=== PATIENT | female | born 1960 | race Caucasian/White ===

== ENCOUNTER 2016-07-24 21:00 | Emergency (ER) | payer OTHER ==
[~2016-07-24 21:00] MED LIST: CHILDREN'S ASPI81 MG PO; COZAAR100 MG PO; FLONASE 0.05% D16 GM NS; LIPITOR20 MG PO; ZYRTEC10 M3 PO
--- NOTE | 2016-07-25 19:35 | ER ---
ADMIT: 07/24/2016 RM/LOC: [facility] MR#: [id number] [address] [id number] DINH LOMBARDO MARSHA Rob Luis [address] [place] [address] Emergency Room Report SEX: F AGE: 55 : 1960 DATE: 07/24/2016 ADDENDUM: Please see my T-sheet for complete review of systems, past medical history, and physical exam. CHIEF COMPLAINT: Sore throat. HISTORY OF PRESENT ILLNESS: A 55-year-old female, who presents with 5 days' duration of upper respiratory symptoms, two days of worsening sore throat. Admits to fever, chills, severe sore throat, runny nose, congestion, cough, swollen glands, muscle aches, headaches. States she has been using some tetracycline. I am not sure exactly where she has obtained this, but she has taken several doses of this antibiotic. PAST MEDICAL HISTORY: Diabetes and hypertension. COURSE IN THE EMERGENCY ROOM: GENERAL: The patient was seen and examined, afebrile, nontoxic. No acute distress. HEENT: Normocephalic, atraumatic. No cervical lymphadenopathy. Mouth, pharynx is nonerythematous. No tonsillar exudates. No airway problems. Ears nonerythematous. She does have some rhinorrhea and mucosal edema on the right greater than left. RESPIRATORY: No respiratory distress. Breath sounds equal bilaterally. HEART: Regular rate and rhythm. ABDOMEN: Soft and nontender. SKIN: No rash. Rapid strep screen negative for strep. Throat culture pending at this time. She was given 300 mg of ibuprofen prior to discharge. IMPRESSION: 1. Acute pharyngitis. 2. Upper respiratory infection. DISPOSITION: The patient was discharged to continue Tylenol and ibuprofen as needed for pain. I did encourage her to stop taking the tetracycline at this time as it is not prescribed by physician. Return with worsening signs or symptoms. Increase fluids. Follow up with primary as needed. Questions sought and answered to the best of my ability and to the patient's satisfaction. Discharged in stable condition. ANGIE Regalado / Vishal Tuckre MD / aracelis JOB #: [id number] CC: Vishal Tucker MD, Attending Physician Carlos Eduardo Diaz MD, Family Physician
== END 2016-07-24 22:26 | disposition home or self-care (01) ==
LOC: ER 21:00
DX: J02.9 Acute pharyngitis, unspecified (principal); E11.9 Type 2 diabetes mellitus without complications; I10 Essential (primary) hypertension

== ENCOUNTER → 2016-11-03 | Outpatient (CLI) | payer OTHER | END | disposition home or self-care (01) | DX: Z12.31 Encounter for screening mammogram for malignant neoplasm of breast (principal) ==